=== PATIENT | female | born 1975 | race Caucasian/White ===

== ENCOUNTER 2025-03-08 19:30 | Emergency (ER) | payer OTHER, SELFPAY ==
[2025-03-08 19:32] VITALS: BP 142/88; PULSE 101; TEMP 36.7; O2SAT 99; BMI 29.2
[2025-03-08 20:40] LABS: Rapid Strep A Test Negative (Negative)
[2025-03-08 21:06] LABS: Influenza A NEGATIVE (Negative); Influenza B NEGATIVE (Negative); Respiratory Syncytial Virus Ce NEGATIVE (Negative); SARS-CoV-2 PCR NEGATIVE (Negative)
--- NOTE | 2025-03-08 21:21 | ED_ITS ---
HPI - URI/Sore Throat General: Chief Complaint: Upper Respiratory Infection Stated Complaint: fever, aches, n/v, sore throat Time Seen by Provider: 03/08/25 21:02 Source: patient Mode of arrival: ambulatory Limitations: no limitations History of Present Illness: Patient is a 49-year-old female who presents the emergency department complaining of a sore throat since Friday. 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 Initially was having fever and chills but states that this has since resolved. States that she still has her tonsils. Has been taking ibuprofen, states this takes the edge off. No other treatments have been taken [id number]. Vitals unremarkable at this time, afebrile. MD elicited complaint: sore throat Onset (ago): day(s) Consistency: constant Severity: moderate Able to tolerate fluids by mouth: Yes Exacerbating factors: swallowing and speaking Relieving factors: nothing Context: sick contacts Associated symptoms: Reports chills and fever(s); Deny abdominal pain, chest pain, diarrhea, ear or mastoid pain, headache(s), nausea or vomiting Treatments prior to arrival: ibuprofen Related Data Previous Rx's ?Medication ?Instructions ?Recorded lidocaine HCl 2 % mucosal solution 10 ml mucous membra ne DAILY PRN 03/08/25 (Lidocaine Viscous) pain #100 mL Allergies Allergy/AdvReac Type Severity Reaction Status Date / Time No Known Allergies Allergy Verified 03/08/25 19:42 Review of Systems General: Reports: 10 or more systems reviewed and unremarkable except in HPI and below Const: Reports: fever(s) and chills; Denies: fatigue Eyes: Denies: change in vision ENMT: Reports: throat pain; Denies: ear or mastoid pain or nasal discharge Card: Denies: chest pain, palpitations, swelling of feet/ankles or lightheadedness Resp: Denies: dyspnea, productive cough or wheezing GI: Denies: abdominal pain, nausea, vomiting, diarrhea or constipation : Denies: flank pain, difficulty voiding, dysuria or urinary frequency Musc: Denies: neck pain, back pain or joint pain Skin/Breast: Denies: rash Neuro: Denies: headache(s), numbness in extremities or weakness in extremities Physical Exam Const: COMMON NORMALS: no acute distress and healthy appearing GENERAL APPEARANCE: cooperative, comfortable and well developed HENMT: COMMON NORMALS: normocephalic, atraumatic, hearing grossly normal bilaterally, Normal external nose present and Normal nasal mucous membranes and turbinates present HEAD & SCALP: normal to inspection, normocephalic and atraumatic FACE & SINUS: normal facial exam and sinuses nontender NOSE: Normal external nose present, Normal nares present, No nasal polyps present and Normal nasal mucous membranes and turbinates present MOUTH: Normal oral and palatal mucosa present THROAT: tonsils normal and posterior oropharynx abnormal erythema Eye: COMMON NORMALS: EOMs intact bilaterally, conjunctivae normal and normal visual dee by confrontation GENERAL EYE: appearance normal, both eyes and all related structures CONJUNCTIVA: Yes conjunctivae normal Neck/C-Spine: COMMON NORMALS: full ROM, no lymphadenopathy, supple and no meningeal signs GENERAL: Yes normal visual inspection Chest: COMMONS NORMALS: normal inspection of the chest Resp: COMMON NORMALS: normal respiratory effort and clear to auscultation bilaterally EFFORT & INSPECTION: Yes able to speak in complete sentences AUSCULTATION: clear to auscultation bilaterally Cardio: COMMON NORMALS: regular rate, regular rhythm, S1 normal heart sound present and S2 normal heart sound present RATE: regular rate RHYTHM: regular rhythm HEART SOUNDS: S1 normal heart sound present, S2 normal heart sound present, no gallops, no murmurs and no rubs Extremity: COMMON NORMALS: normal to inspection, full ROM and capillary refill normal Neuro: MENINGEAL SIGNS: Yes no meningeal signs Skin: COMMON NORMALS: no rashes or lesions noted GENERAL SKIN EXAM: no rashes or lesions noted Course Vital Signs: Vital signs: Vital Signs Temperature 98.1 F 03/08/25 19:32 Pulse Rate 101 H 03/08/25 19:32 Blood Pressure 142/88 03/08/25 19:32 Pulse Oximetry 99 03/08/25 19:32 Oxygen Delivery Me thod Room Air 03/08/25 19:32 MDM - URI/Sore Throat Medical Decision Making Patient presented for evaluation of sore throat, swab for strep was negative as well as her COVID/flu/RSV. On exam there was erythema noted to posterior oropharynx, tonsils appeared normal. With other reported symptoms and possible sick contact exposure I suspect viral pharyngitis and will have her treat conservatively at home. Stable for discharge, discussed return precautions. Viscous lidocaine given here in the ED. Lab Data Laboratory Results Influenza A (PCR) Negative (Negative) 03/08/25 19:40 Influenza Type B (PCR) Negative (Negative) 03/08/25 19:40 RSV (PCR) Negative (Negative) 03/08/25 19:40 SARS-CoV-2 (PCR) Negative (Negative) 03/08/25 19:40 Group A Strep Rapid Negative (Negative) 03/08/25 19:40 No radiology studies performed this visit Discharge Plan Discharge Patient Disposition: Home Clinical Impression: Acute viral pharyngitis Condition: Stable Prescriptions: New lidocaine HCl [Lidocaine Viscous] 2 % solution 10 ml mucous membrane DAILY PRN (Reason: pain) Qty: 100 0RF Discharge Orders: Discharge ED (Routine); Ordered 03/08/25 Ordered By: Ok Hernandez Referrals: Ciro Mondragon [Primary Care Provider] - Patient Instructions: Pharyngitis (ED) Activity Restrictions/Additional Instructions: Salt water gargles. Viscous lidocaine. Continue alternating ibuprofen and Tylenol, drink plenty of fluids. Work note provided. Follow-up with primary care routinely and return with any new or worsening. 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
[2025-03-08 21:42] VITALS: BP 142/88; PULSE 101; O2SAT 99
[2025-03-08] MEDS: lidocaine 2% viscous 15 mL UDC MUCOUS MEM (21:47)
[2025-03-08 21:54] VITALS: BP 114/81; PULSE 99; O2SAT 97
== END 2025-03-08 21:55 | disposition home or self-care (01) ==
PROVIDERS: Emergency Medicine; Emergency Provider Physician Assistant; PCP Family Medicine
DX: J02.8 Acute pharyngitis due to other specified organisms (principal); Z11.52 Encounter for screening for COVID-19
CPT/HCPCS: 87081; 87637; 87880; 99283; J9999